=== PATIENT | female | born 1960 | race Caucasian/White ===

== ENCOUNTER 2017-08-14 11:59 | Emergency (ER) | payer OTHER ==
[~2017-08-14] VITALS: Ht 165.1 cm; Wt 93.0 kg
[~2017-08-14 11:59] MED LIST: AMLODIPINE BESY10 M1 PO; BACTRIM1 TAB PO; COLACE100 MG PO; COZAAR100 MG PO; HYDROCHLOROTHIA25 MG PO; LAC PO; LEVOTHYROXINE0.15 M2 PO; NOR10T PO
[2017-08-14 12:08] VITALS: Ht 165.1 cm; Wt 93.0 kg
[2017-08-14 14:29] VITALS: BP 122/71
== END 2017-08-14 14:29 | disposition home or self-care (01) ==
LOC: ED 11:59
DX: R60.0 Localized edema (principal); I10 Essential (primary) hypertension
CPT/HCPCS: Q0092

== ENCOUNTER 2017-09-02 08:40 | Emergency (ER) | payer OTHER ==
[~2017-09-02] VITALS: Ht 165.1 cm; Wt 93.0 kg
[2017-09-02 09:00] VITALS: BP 142/92
== END 2017-09-02 10:48 | disposition home or self-care (01) ==
LOC: ED 08:40
DX: S63.601A Unspecified sprain of right thumb, initial encounter (principal); S16.1XXA Strain of muscle, fascia and tendon at neck level, initial encounter; I10 Essential (primary) hypertension; V89.2XXA Person injured in unspecified motor-vehicle accident, traffic, initial encounter; Y93.89 Activity, other specified; Y92.89 Other specified places as the place of occurrence of the external cause; Y99.8 Other external cause status
CPT/HCPCS: Q0092

== ENCOUNTER 2019-03-28 23:47 | Inpatient (IN) | payer OTHER ==
[~2019-03-28] VITALS: Ht 165.1 cm; Wt 93.4 kg
[2019-03-28 23:59] VITALS: Ht 165.1 cm; Wt 93.4 kg
[2019-03-29 00:53] LABS: BASOPHIL % 0.1 % (0-2); PLATELET COUNT 213 x10^3mcL (130-400); RED CELL DISTRIBUTION WIDTH 12.8 % (11.5-14.5)
[2019-03-29 01:08] LABS: CARBON DIOXIDE 27.1 mmol/L (21-32); CHLORIDE SERUM 103 mmol/L (98-107); CREATININE SERUM 0.7 mg/dL (0.6-1.0); GFR1 > 60 mL/min; GLUCOSE SERUM 145 mg/dL (74-106); POTASSIUM SERUM 3.2 mmol/L (3.5-5.1); SODIUM SERUM 139 mmol/L (136-145)
[2019-03-29 01:13] LABS: ALBUMIN 3.8 g/dL (3.4-5.0); ALKALINE PHOSPHATASE 59 U/L (46-116); ALT/SGPT 23 U/L (14-59); AST/SGOT 12 U/L (15-37); BILIRUBIN TOTAL 0.3 mg/dL (0.20-1.00); TOTAL PROTEIN, SERUM 7.4 g/dL (6.4-8.2)
[2019-03-29 01:20] LABS: AMPHETAMINE QUAL UR NONE DETECTED (See below)
[2019-03-29 05:29] VITALS: BP 128/72
[2019-03-29 09:12] VITALS: BP 112/62
[2019-03-29 12:53] VITALS: BP 133/75
[2019-03-29 17:34] VITALS: BP 124/50
[2019-03-29 17:41] VITALS: BP 124/50
== END 2019-03-29 19:00 | disposition home or self-care (01) | DRG 47 ==
LOC: ED 23:47 → DU 03-29 03:07
PROVIDERS: Emergency Medicine; ADMIT Internal Medicine
DX: G45.9 Transient cerebral ischemic attack, unspecified (principal); E03.9 Hypothyroidism, unspecified; I10 Essential (primary) hypertension; E87.6 Hypokalemia; Z79.899 Other long term (current) drug therapy; Z23 Encounter for immunization
CPT/HCPCS: 86431; 90658; G0378; G0480; Q0092; Q0162